=== PATIENT | female | born 1975 | race Caucasian/White ===

== ENCOUNTER 2021-11-01 05:07 | Emergency (ER) | payer BC ==
--- NOTE | 2021-11-01 05:27 | ED Physician Documentation ---
PD HPI CHEST PAIN - Stated complaint Stated Complaint: PALPITATIONS, DIZZINESS - Chief complaint Chief Complaint: Cardiac - History obtained from History obtained from: Patient - History of Present Illness Timing - onset: How many hours ago (2) - Additional information Additional information: 45-year-old female with no prior past medical history presents for chest palpitations and pressure sensation that she noticed when she woke up from sleep today at 4 AM. Pain is intermittent, centralized, substernal, does not radiate. Patient states that her heart rate is normally in the low 60s, however it was up to 100. Symptoms did not resolve and so she presented today for evaluation. Patient denies any medical history, takes occasional Concerta, has not taken it in several days. Denies tobacco abuse. Denies any heart disease in her mother or father Review of Systems Ten Systems: 10 systems reviewed and negative Constitutional: denies: Fever, Chills, Myalgias Ears: denies: Loss of hearing, Ear pain, Drainage/discharge Nose: denies: Rhinorrhea / runny nose Cardiac: reports: Chest pain / pressure, Palpitations. denies: Pedal edema Respiratory: denies: Dyspnea, Cough, Hemoptysis, Wheezing GI: denies: Abdominal Pain, Abdominal Swelling, Nausea, Vomiting PD PAST MEDICAL HISTORY - Past Medical History Past Medical History: Yes Psych: ADD/ADHD - Past Surgical History Past Surgical History: No - Present Medications Home Medications: Ambulatory Orders Medication Instructions Recorded Confirmed Methylphenidate HCl [Concerta] 1 tab PO DAILY 11/01/21 11/01/21 - Allergies Allergies/Adverse Reactions: Allergies Allergy/AdvReac Type Severity Reaction Status Date / Time No Known Drug Allergies Allergy Verified 11/01/21 05:15 - Social History Does the pt smoke?: No Smoking Status: Never smoker Does the pt drink ETOH?: Yes Does the pt have substance abuse?: No - Immunizations Immunizations are current?: Yes - POLST Patient has POLST: No PD ED PE NORMAL - Vitals Vital signs reviewed: Yes - General General: Alert and oriented X 3, No acute distress, Well developed/nourished - HEENT HEENT: Atraumatic, PERRL, EOMI - Neck Neck: Supple, no meningeal sign, No bony TTP, C-Spine cleared by NEXUS criteria - Cardiac Cardiac: RRR, No murmur, Strong equal pulses - Respiratory Respiratory: No respiratory distress, Clear bilaterally - Abdomen Abdomen: Soft, Non tender, Non distended - Back Back: No CVA TTP, No spinal TTP - Derm Derm: Normal color, Warm and dry, No rash - Extremities Extremities: No deformity, No tenderness to palpate, Normal ROM s pain, No edema - Neuro Neuro: Alert and oriented X 3, 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, No motor deficit, No sensory deficit, Normal speech - Psych Psych: Normal mood, Normal affect Results - Vitals Vitals: Vital Signs - 24 hr 11/01/21 11/01/21 11/01/21 05:12 05:21 05:24 Temperature 36.0 C L Heart Rate 69 60 Respiratory 18 14 Rate Blood Pressure 112/82 H 119/85 H Blood Pressure 119/85 H [Left] Blood Pressure 112/82 H [Right] O2 Saturation 100 100 11/01/21 05:46 Temperature Heart Rate 67 Respiratory 16 Rate Blood Pressure 104/71 Blood Pressure [Left] Blood Pressure [Right] O2 Saturation 99 Oxygen O2 Source Room air - EKG (time done) 0518 Rate: Rate (enter#) (70) Rhythm: NSR [place]: Normal Intervals: Normal MT QRS: Normal Ischemia: Normal ST segments - Labs Labs: Laboratory Tests 11/01/21 11/01/21 11/01/21 05:30 05:30 05:30 WBC 7.4 RBC 4.42 Hgb 13.5 Hct 39.6 MCV 89.6 MCH 30.5 MCHC 34.1 RDW 12.0 Plt Count 284 MPV 10.4 Neut # (Auto) 3.2 Lymph # (Auto) 3.1 [place] # (Auto) 0.8 Eos # (Auto) 0.3 Baso # (Auto) 0.1 Absolute Nucleated RBC 0.00 Nucleated RBC % 0.0 Sodium 138 Potassium 3.4 L Chloride 104 Carbon Dioxide 22 Anion Gap 12.0 BUN 12 Creatinine 0.9 Estimated GFR (MDRD) 68 L Glucose 103 H Calcium 9.0 Total Bilirubin 1.0 AST 20 ALT 15 Alkaline Phosphatase 36 L Troponin I High Sens < 2.3 L B-Natriuretic Peptide Total Protein 7.4 Albumin 4.3 Globulin 3.1 Albumin/Globulin Ratio 1.4 TSH 11/01/21 11/01/21 05:30 05:30 WBC RBC Hgb Hct MCV MCH MCHC RDW Plt Count MPV Neut # (Auto) Lymph # (Auto) [place] # (Auto) Eos # (Auto) Baso # (Auto) Absolute Nucleated RBC Nucleated RBC % Sodium Potassium Chloride Carbon Dioxide Anion Gap BUN Creatinine Estimated GFR (MDRD) Glucose Calcium Total Bilirubin AST ALT Alkaline Phosphatase Troponin I High Sens B-Natriuretic Peptide 7 Total Protein Albumin Globulin Albumin/Globulin Ratio TSH 3.65 PD MEDICAL DECISION MAKING - ED course ED course: Chest pain, denies any cardiac history. Vital signs normal. No family hx of cardiac disease. Cardiac workup initiated. Initial troponin is below assay limit. Thyroid normal, chest x-ray unremarkable. Patient reassessed, she is very concerned because her heart rate elevated in the middle the night and she does not know why. She is concerned because she and her family are about to go on a trip to [place] next week and she wants to make sure that this is not going to happen again on vacation. I explained that I could not guarantee that it would happen again, however at this time it seems unlikely that this is related to acute coronary syndrome. Will order 2-hour troponin, if negative patient will be discharged home. She states that it is easy for her to make an appointment with her primary care physician and if she is discharged home today she will call first thing Wednesday morning to make an appointment for follow-up. Departure - Departure Clinical Impression: Chest pain Instructions: ED Chest Pain Atypical Unkn Cause Comments: You have been seen for chest pain. At this time your EKG, troponins, chest x- ray, other laboratory work is all normal. I do not know what caused your chest pain but you are safe to go home at this time. I strongly recommend following up as soon as possible with your primary care physician.
[2021-11-01 05:34] LABS: BASOPHILS # (AUTO) 0.1 10^3/uL (0.0-0.1); BASOPHILS % (AUTO) 0.7 %; EOSINOPHILS # (AUTO) 0.3 10^3/uL (0.0-0.7); EOSINOPHILS % (AUTO) 4.3 %; HCT - HEMATOCRIT 39.6 % (37.0-47.0); HGB - HEMOGLOBIN 13.5 g/dL (12.0-16.0); LYMPHOCYTES # (AUTO) 3.1 10^3/uL (1.5-3.5); LYMPHOCYTES % (AUTO) 41.3 %; MEAN CORPUSCULAR HEMOGLOBIN 30.5 pg (27.0-31.0); MEAN CORPUSCULAR HGB CONC 34.1 g/dL (32.0-36.0); MEAN CORPUSCULAR VOLUME 89.6 fL (81.0-99.0); MEAN PLATELET VOLUME 10.4 fL (7.9-10.8); MONOCYTES # (AUTO) 0.8 10^3/uL (0.0-1.0); MONOCYTES % (AUTO) 10.8 %; NEUTROPHILS # (AUTO) 3.2 10^3/uL (1.5-6.6); NEUTROPHILS % (AUTO) 42.8 %; PLT - PLATELET COUNT 284 10^3/uL (130-450); RED BLOOD COUNT 4.42 10^6/uL (4.20-5.40); WHITE BLOOD COUNT 7.4 x10^3/uL (4.8-10.8)
[2021-11-01 05:49] LABS: ALBUMIN 4.3 g/dL (3.2-5.5); ALBUMIN/GLOBULIN RATIO 1.4 (1.0-2.2); CREATININE 0.9 mg/dL (0.4-1.0); POTASSIUM 3.4 mmol/L (3.5-5.0); TOTAL PROTEIN 7.4 g/dL (6.7-8.2)
--- NOTE | 2021-11-01 08:00 | XRAY Report ---
PROCEDURE: Chest 1 View X-Ray INDICATIONS: CHEST PAIN TECHNIQUE: One view of the chest was acquired. COMPARISON: None FINDINGS: Surgical changes and devices: None. Lungs and pleura: No pleural effusions or pneumothorax. Lungs are clear. Mediastinum: Mediastinal contours appear normal. Heart size is normal. Bones and chest wall: No suspicious bony lesions. Overlying soft tissues appear unremarkable. IMPRESSION: Normal portable chest. Note: No significant discrepancy from the preliminary report. Reviewed by: Ortiz Kilgore MD on 11/01/2021 6:58 AM [facility] Approved by: Ortiz Kilgore MD on 11/01/2021 6:58 AM [facility] Station ID: [id number]
[2021-11-01 08:27] VITALS: BP 108/85
--- NOTE | 2021-11-01 08:49 | ED Physician Documentation ---
ED Addendum - Addendum Addendum: 11/01/21 08:48 The patient remains symptom-free at change of shift. Her repeat troponin was drawn and came back negative. Unclear the cause of her symptoms. Currently feels well. We will plan on discharge. To recheck or follow-up if recurring episodes. Otherwise normal activity and diet. Disposition the patient is discharged home in stable condition. Diagnoses: 1. Chest pain and pressure of uncertain etiology 2. Normal troponin and EKG
== END 2021-11-01 09:05 | disposition home or self-care (01) ==
LOC: ED 05:07
DX: R07.9 Chest pain, unspecified (principal)
CPT/HCPCS: 36415; 80053; 83880; 84443; 84484; 85025; 93005; 99282; 99284